=== PATIENT | male | born 1940 | race Caucasian/White ===

== ENCOUNTER → 2017-01-28 | Outpatient (CLI) | payer MEDICARE, BC ==
[~2017-01-28] VITALS: Ht 182.9 cm; Wt 88.6 kg
[~2017-01-28] MED LIST: AMLO5TAB66 PO; ASCO-296 PO; ASPI-730 PO; CILO100T21 PO; ENAL20TA PO; EZET1TAB3 PO; Fish Oil; LUTE6CAP6 PO; METO-64 PO; MULT-543 PO; REGADENOSON 0.4mg/5ml INJECTION IV ONE; SALINE FLUSH 10ml SYRINGE ONE; SOTA80TA42 PO; [UNRECOGNIZED DRUG - CODE]
--- NOTE | 2017-01-29 19:38 | ADENOSINEF ---
MYOCARDIAL PERFUSION SCAN DATE OF PROCEDURE 01/28/2017 NARRATIVE OF PROCEDURE Mr. Spivey underwent a myocardial perfusion scan. He underwent a pharmacological scan with regadenoson 0.4 mg. He received 12.9 mCi of 99mTc Myoview for the rest portion of the study and 31.9 mCi of 99mTc Myoview for the stress portion. 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 No changes in his EKG were noted post regadenoson. Scintigraphically he was imaged post regadenoson and again at rest. Scintigraphic views show a large inferior defect with no other defects noted. Inferior akinesis is noted with an ejection fraction of between 43%-48%. Baseline blood pressure was 144/87. Baseline heart rate was 61. CONCLUSION 1. Clinically negative for ischemia as patient did not experience chest pain. 2. Electrocardiographically negative for ischemia. 3. Scintigraphically negative for ischemia. Positive for a large inferior wall scar with decreased ejection fraction between 43% and 48% with inferior akinesis. MTDD
--- NOTE | 2017-01-30 11:08 | ECHOF ---
ECHOCARDIOGRAM REPORT DATE OF PROCEDURE: 01/28/2017 2-D, M-mode, color-flow and Doppler echocardiographic examinations were performed on this patient. The left atrium is mildly enlarged. The left ventricle is minimally enlarged. The left ventricle including the septum shows inferior wall hypokinesis. Overall ejection fraction is 55%. The mitral valve opens appropriately and does not evidence stenosis or prolapse. There is mild mitral regurgitation. The aortic, tricuspid and pulmonic valves appear normal. There is mild tricuspid regurgitation and trace pulmonic insufficiency. Pulmonary artery pressures are normal at 23 mmHg. IVC collapses well. The right atrium is enlarged. The right ventricle appears normal in size and function. The aortic root appears normal. No vegetations are seen on any valve. No intracavitary masses or thrombi are noted. There is no pericardial effusion. CONCLUSION Biatrial enlargement. Diastolic dysfunction is noted. Mild mitral regurgitation. Mild tricuspid regurgitation. Trace pulmonic insufficiency. Inferior wall hypokinesis with overall ejection fraction at 55%. MTDD
== END ==
LOC: IMA 08:18
PROVIDERS: ATTEND Internal Medicine Cardiovascular Disease
DX: I08.1 Rheumatic disorders of both mitral and tricuspid valves (principal); I10 Essential (primary) hypertension; I25.2 Old myocardial infarction; I25.10 Atherosclerotic heart disease of native coronary artery without angina pectoris; I50.30 Unspecified diastolic (congestive) heart failure
CPT/HCPCS: 78452; 93017; 93306; A9502; J2785

== ENCOUNTER → 2017-03-23 | Outpatient (CLI) | payer MEDICARE, BC ==
[~2017-03-23] MED LIST changes: -REGADENOSON 0.4mg/5ml INJECTION IV ONE; -SALINE FLUSH 10ml SYRINGE ONE
[2017-03-23 09:05] LABS: ALBUMIN 4.5 G/DL (3.5-5.0); ALBUMIN/GLOBULIN RATIO 1.3 RATIO (1.1-2.2); ALKALINE PHOSPHATASE 87 U/L (38-126); ALT (SGPT) 57 U/L (21-72); ANION GAP 12 MEQ/L (5-15); AST (SGOT) 44 U/L (17-59); BUN/CREATININE RATIO 28 RATIO (6-26); CALCIUM 9.7 MG/DL (8.4-10.2); CHLORIDE 107 MEQ/L (98-107); CK - CPK 104 U/L (55-170); CO2 - CARBON DIOXIDE 26 MEQ/L (22-30); CREATININE 0.8 MG/DL (0.8-1.5); GLOMERULAR FILTRATION RATE 94; GLUCOSE 122 MG/DL (75-110); POTASSIUM 4.5 MEQ/L (3.6-5); SODIUM 145 MEQ/L (134-144); TOTAL PROTEIN 7.9 G/DL (6.3-8.2)
== END ==
LOC: LAB 08:40
PROVIDERS: ATTEND Internal Medicine Cardiovascular Disease
DX: E78.4 Other hyperlipidemia (principal); Z79.899 Other long term (current) drug therapy
CPT/HCPCS: 36415; 80053; 82550; 83718; 83721; 84478